=== PATIENT | female | born 1990 | race Caucasian/White ===

== ENCOUNTER 2017-10-20 00:06 | Emergency (ER) | payer MEDICAID ==
[2017-10-20] MEDS: FAMOTIDINE 20 MG TAB PO (02:38)
[2017-10-20] MEDS: METHYLPREDNISOLONE 125 MG INJ IM (02:38)
== END 2017-10-20 03:15 | disposition home or self-care (01) ==
LOC: FTE 00:06
DX: L50.9 Urticaria, unspecified (principal)
CPT/HCPCS: 96372; 99284-25